=== PATIENT | female | born 1985 | race Two or more races ===

== ENCOUNTER 2023-05-17 12:15 | Inpatient (IN) | payer OTHER ==
[~2023-05-17] VITALS: Ht 162.6 cm; Wt 3.2 kg
[2023-05-17 13:29] LABS: HEMATOCRIT 33.6 % (36.0-45.00); HEMOGLOBIN 11.4 g/dL (12.0-15.00); MEAN CELL VOLUME 93.6 fL (80.00-100.00); MEAN CORPUSCULAR HEMOGLOBIN 31.9 pg (27.00-32.0); MEAN CORPUSCULAR HGB CONC 34.1 g/dl (32.0-36.0); PLATELET COUNT 168 K/uL (150-450); RED BLOOD COUNT 3.59 M/uL (4.00-6.00); RED CELL DISTRIBUTION WIDTH 14.3 % (11.5-14.5)
[2023-05-17 14:01] LABS: INR < 0.93; PARTIAL THROMBOPLASTIN TIME 27.6 SECONDS (22.0-34.0); PROTHROMBIN TIME 9.8 SECONDS (9.0-11.5)
[2023-05-17 14:06] LABS: ALBUMIN 2.7 gm/dL (3.4-5.0); BILIRUBIN TOTAL 0.29 mg/dL (0.3-1.2); CALCIUM 8.7 mg/dL (8.5-10.1); CREATININE SERUM 0.5 mg/dL (0.55-1.02); GFR 137.35; GLOBULINA 3.6 G/DL (2.4-3.5); POTASSIUM 3.74 mEq/L (3.5-5.1); TOTAL PROTEIN 6.3 gm/dL (6.4-8.2)
[2023-05-17] MEDS ORDERED: OBSTETRIX DHA1 EAC1 PO (15:27)
[2023-05-17] MEDS ORDERED: SYNTHROID150 MCG PO (15:27)
[2023-05-17] MEDS ORDERED: IRON236 MG PO (15:28)
[2023-05-23] MEDS ORDERED: CLINDAMYCIN PHOSPHATE 150 MG/ML (600mg) ONE (12:41)
[2023-05-23] MEDS ORDERED: CITRIC ACID/SODIUM CITRATE 30 ML BLIST.PACK PO ONE ×2 (12:41→15:00)
[2023-05-23] MEDS ORDERED: ERYTHROMYCIN BASE 3.5 GM OINT...G. OP ONE (12:43)
[2023-05-23] MEDS ORDERED: OXYTOCIN 10 UNITS/ML VIAL ONE (12:43)
[2023-05-23] MEDS ORDERED: DOCUSATE CALCI240 MG (13:48)
[2023-05-23] MEDS ORDERED: MORPHINE SULFATE 4 MG/ML VIAL IV SCH (14:08)
[2023-05-23] MEDS ORDERED: KETOROLAC TROMETHAMINE 30 MG VIAL IV SCH (14:09)
[2023-05-23] MEDS ORDERED: CLINDAMYCIN PHOSPHATE 150 MG/ML (600mg) IV ONE (15:00)
[2023-05-23] MEDS ORDERED: OXYTOCIN 10 UNITS/ML VIAL IV ONE (15:00)
[2023-05-23] MEDS ORDERED: ERYTHROMYCIN BASE 1 GM TUBE OP ONE (15:00)
[2023-05-23] MEDS ORDERED: OXYTOCIN 20 UNITS/500ML RL PIGGYBAG IV ONE (21:29)
[2023-05-24] MEDS ORDERED: ACETAMINOPHEN 500 MG GEL..CAP PO SCH (06:00)
[2023-05-24 07:16] LABS: HEMATOCRIT 29.4 % (36.0-45.00); HEMOGLOBIN 10.3 g/dL (12.0-15.00); MEAN CELL VOLUME 94.5 fL (80.00-100.00); MEAN CORPUSCULAR HEMOGLOBIN 33.3 pg (27.00-32.0); MEAN CORPUSCULAR HGB CONC 35.2 g/dl (32.0-36.0); RED BLOOD COUNT 3.11 M/uL (4.00-6.00); RED CELL DISTRIBUTION WIDTH 13.9 % (11.5-14.5)
[2023-05-24 07:31] LABS: PLATELET COUNT 115 K/uL (150-450)
[2023-05-24] MEDS ORDERED: GABAPENTIN 300 MG CAPSULE PO SCH (09:00)
[2023-05-24] MEDS ORDERED: PNV,CALCIUM 72/IRON/FOLIC ACID 1 TAB TABLET PO SCH (09:00)
[2023-05-24] MEDS ORDERED: SIMETHICONE 125 MG CAPSULE PO SCH (09:00)
[2023-05-24] MEDS ORDERED: DOCUSATE SODIUM 100MG CAP PO SCH (09:00)
[2023-05-24] MEDS ORDERED: IBUprofen 600 MG TABLET PO SCH (12:00)
== END 2023-05-25 15:46 | disposition home or self-care (01) | DRG 788 ==
LOC: O/R 05-23 06:58 → OB/GYN 05-23 06:58
PROVIDERS: Obstetrics & Gynecology Gynecology; ADMIT Obstetrics & Gynecology; ATTEND Obstetrics & Gynecology
PROC: 4A1HXCZ Monitoring of Products of Conception, Cardiac Rate, External Approach (ICD-10-PCS; 2023-05-23)
PROC: 10D00Z1 Extraction of Products of Conception, Low, Open Approach (ICD-10-PCS; principal; 2023-05-23 12:00)
DX: O34.211 Maternal care for low transverse scar from previous cesarean delivery (principal); Z3A.39 39 weeks gestation of pregnancy; Z37.0 Single live birth; Z20.822 Contact with and (suspected) exposure to COVID-19